=== PATIENT | female | born 1995 | race African-American/Black ===

== ENCOUNTER 2016-10-10 10:27 | Emergency (ER) | payer OTHER ==
[~2016-10-10] VITALS: Ht 162.6 cm; Wt 68.0 kg
[2016-10-10] MEDS ORDERED: [UNRECOGNIZED DRUG - REMARK] (10:46)
[2016-10-10 12:46] LABS: BASO % 0.1 % (0.0-1.0); EOS # 0.1 K/mm3 (0.0-0.50); EOS % 1.2 % (0.0-3.0); LARGE UNSTAINED CELL # 0.2 K/mm3 (0.0-0.4); LYMPH # 2.1 K/mm3 (1.5-6.5); LYMPH % 31.5 % (24.0-44.0); MEAN CORPUSCULAR HEMOGLOBIN 29.2 pg (27.0-33.0); MEAN CORPUSCULAR HGB CONC 32.1 g/dl (32.0-36.5); MEAN CORPUSCULAR VOLUME 91.2 fl (80.0-96.0); MONO # 0.4 K/mm3 (0.0-0.8); MONO % 6.1 % (0.0-5.0); NEUTROPHILS # 3.8 K/mm3 (1.8-7.7); NEUTROPHILS % 58.1 % (36.0-66.0); PLATELET COUNT, AUTOMATED 257 k/mm3 (150-450); WHITE BLOOD COUNT 6.5 K/mm3 (4.0-10.0)
[2016-10-10 13:31] VITALS: BP 132/80
--- NOTE | 2016-10-10 13:47 | REP ---
FIRST TRIMESTER ULTRASOUND: Real-time sonographic evaluation of the pelvis performed utilizing transabdominal and endovaginal technique. The uterus measures 9.6 x 4.2 x 6.0 cm. Endometrial thickness is 16 mm. There is no intrauterine gestational sac seen. Right ovary measures 3.6 x 2.7 x 2.2 cm and left ovary 2.6 x 1.5 x 2.4 cm. Complex cystic structure of the right ovary measures 2.5 x 1.9 x 1.6 cm. This could represent a corpus luteum. There is no evidence of ovarian torsion, with blood flow seen in each ovary with duplex Doppler evaluation. There is no adnexal mass or free fluid. IMPRESSION: No intrauterine gestational sac. Small complex cystic structure right ovary may represent a complex corpus luteum. No mass or free fluid. Findings may represent very early intrauterine , missed AB or ectopic . Suggest correlation with serial quantitative beta hCG values. There is no torsion. Signed by Solo Rasmussen MD 10/10/2016 05:02 P
== END 2016-10-10 14:04 | disposition home or self-care (01) ==
LOC: M ED 11:44
DX: Z33.1 Pregnant state, incidental (principal); R10.2 Pelvic and perineal pain; K21.9 Gastro-esophageal reflux disease without esophagitis

== ENCOUNTER 2016-10-12 12:04 | Emergency (ER) | payer OTHER ==
[~2016-10-12] VITALS: Ht 162.6 cm; Wt 68.0 kg
[2016-10-12 12:04] VITALS: BP 163/76
[~2016-10-12 12:04] MED LIST: [UNRECOGNIZED DRUG - REMARK]
== END 2016-10-12 13:11 | disposition home or self-care (01) ==
LOC: M ED 12:44
DX: O99.89 Other specified diseases and conditions complicating pregnancy, childbirth and the puerperium (principal); M54.5 Low back pain; Z3A.01 Less than 8 weeks gestation of pregnancy

== ENCOUNTER 2016-10-31 23:57 | Emergency (ER) | payer OTHER ==
[~2016-10-31] VITALS: Ht 162.6 cm; Wt 69.4 kg
[2016-11-01] MEDS ORDERED: PREN1CAP PO (00:12)
[2016-11-01 00:47] LABS: BASO % 0.3 % (0.0-1.0); EOS # 0.1 K/mm3 (0.0-0.50); EOS % 1.1 % (0.0-3.0); LARGE UNSTAINED CELL # 0.2 K/mm3 (0.0-0.4); LYMPH # 2.9 K/mm3 (1.5-6.5); LYMPH % 34.8 % (24.0-44.0); MEAN CORPUSCULAR HEMOGLOBIN 30.7 pg (27.0-33.0); MEAN CORPUSCULAR HGB CONC 33.8 g/dl (32.0-36.5); MEAN CORPUSCULAR VOLUME 90.8 fl (80.0-96.0); MONO # 0.4 K/mm3 (0.0-0.8); MONO % 4.6 % (0.0-5.0); NEUTROPHILS # 4.8 K/mm3 (1.8-7.7); NEUTROPHILS % 57.2 % (36.0-66.0); PLATELET COUNT, AUTOMATED 225 k/mm3 (150-450); RED CELL DISTRIBUTION WIDTH 11.9 % (11.5-14.5); WHITE BLOOD COUNT 8.3 K/mm3 (4.0-10.0)
[2016-11-01] MEDS ORDERED: ONDANSETRON 4MG/2ML VIAL (J2405) IV ONE (01:00)
[2016-11-01] MEDS ORDERED: NS 1,000 ML IV ONE (01:00)
[2016-11-01 01:06] LABS: ANION GAP 7 MEQ/L (8-16); BLOOD UREA NITROGEN 9 MG/DL (7-18); CARBON DIOXIDE LEVEL 27 MEQ/L (21-32); CHLORIDE LEVEL 104 MEQ/L (98-107); CREATININE FOR GFR 0.61 MG/DL (0.55-1.02); GLUCOSE, FASTING 89 MG/DL (70-105); POTASSIUM SERUM 3.5 MEQ/L (3.5-5.1); SODIUM LEVEL 138 MEQ/L (136-145)
[2016-11-01] MEDS ORDERED: ONDANSETRON 4 MG ORAL DISINTEGRATING TAB (S0181) PO ONE (02:00)
[2016-11-01] MEDS ORDERED: DICL10TA PO ×2 (02:08)
[2016-11-01 02:32] VITALS: BP 121/67
== END 2016-11-01 02:38 | disposition home or self-care (01) ==
LOC: M ED 11-01 01:05
DX: O21.0 Mild hyperemesis gravidarum (principal); Z3A.08 8 weeks gestation of pregnancy
CPT/HCPCS: 36415; 80048; 85025; 96361; 96374; 99283; J2405

== ENCOUNTER 2016-12-07 11:51 | Emergency (ER) | payer OTHER ==
[~2016-12-07] VITALS: Ht 162.6 cm; Wt 70.3 kg
[~2016-12-07 11:51] MED LIST changes: +DICL10TA PO; +PREN1CAP PO
[2016-12-07] MEDS ORDERED: PYRI25TA3 PO ×2 (11:59→16:58)
[2016-12-07] MEDS ORDERED: NS 1,000 ML IV SCH (13:22)
[2016-12-07] MEDS ORDERED: ONDANSETRON 4MG/2ML VIAL (J2405) IV ONE (13:30)
[2016-12-07] MEDS ORDERED: NS 1,000 ML IV ONE (13:30)
[2016-12-07 14:23] LABS: BASO % 0.1 % (0.0-1.0); EOS # 0.1 K/mm3 (0.0-0.50); EOS % 1.4 % (0.0-3.0); LARGE UNSTAINED CELL # 0.2 K/mm3 (0.0-0.4); LARGE UNSTAINED CELL % 1.6 % (0.0-4.0); LYMPH # 1.8 K/mm3 (1.5-6.5); LYMPH % 18.9 % (24.0-44.0); MEAN CORPUSCULAR HEMOGLOBIN 31.5 pg (27.0-33.0); MEAN CORPUSCULAR HGB CONC 33.7 g/dl (32.0-36.5); MEAN CORPUSCULAR VOLUME 93.4 fl (80.0-96.0); MONO # 0.5 K/mm3 (0.0-0.8); MONO % 5.4 % (0.0-5.0); NEUTROPHILS # 6.8 K/mm3 (1.8-7.7); NEUTROPHILS % 72.5 % (36.0-66.0); PLATELET COUNT, AUTOMATED 261 k/mm3 (150-450); RED CELL DISTRIBUTION WIDTH 12.5 % (11.5-14.5); WHITE BLOOD COUNT 9.3 K/mm3 (4.0-10.0)
[2016-12-07 14:55] LABS: ALBUMIN 3.4 GM/DL (3.2-5.2); ALBUMIN/GLOBULIN RATIO 0.71 (1.00-1.93); ALKALINE PHOSPHATASE 51 U/L (45-117); ALT/SGPT 38 U/L (12-78); ANION GAP 11 MEQ/L (8-16); AST/SGOT 28 U/L (15-37); BILIRUBIN,DIRECT 0.2 MG/DL (0.0-0.2); BILIRUBIN,TOTAL 0.9 MG/DL (0.2-1.0); BLOOD UREA NITROGEN 14 MG/DL (7-18); CALCIUM LEVEL 9.1 MG/DL (8.5-10.1); CARBON DIOXIDE LEVEL 26 MEQ/L (21-32); CHLORIDE LEVEL 100 MEQ/L (98-107); CREATININE FOR GFR 0.68 MG/DL (0.55-1.02); GLUCOSE, FASTING 76 MG/DL (70-105); POTASSIUM SERUM 3.6 MEQ/L (3.5-5.1); SODIUM LEVEL 137 MEQ/L (136-145); TOTAL PROTEIN 8.2 GM/DL (6.4-8.2)
[2016-12-07] MEDS ORDERED: MAALOX 30 ML SUSP *UDC PO ONE (16:45)
[2016-12-07] MEDS ORDERED: ZOFR4TAB3 PO (16:58)
[2016-12-07 17:22] VITALS: BP 126/69
== END 2016-12-07 17:27 | disposition home or self-care (01) ==
LOC: M ED 13:25
DX: O99.611 Diseases of the digestive system complicating pregnancy, first trimester (principal); K21.9 Gastro-esophageal reflux disease without esophagitis; O21.0 Mild hyperemesis gravidarum; Z3A.00 Weeks of gestation of pregnancy not specified
CPT/HCPCS: 80048; 80076; 83690; 85025; 96374; 99284; J2405

== ENCOUNTER 2017-04-04 13:10 | Outpatient (CLI) | payer OTHER ==
[~2017-04-04] VITALS: Ht 162.6 cm; Wt 94.0 kg
[~2017-04-04 13:10] MED LIST changes: +PYRI25TA3 PO; +ZOFR4TAB3 PO
[2017-04-04] MEDS ORDERED: BETAMETHASONE SOLUSPAN 6MG/ML INJ 5ML (J0702) IM ONE (13:30)
== END 2017-04-04 14:11 | disposition home or self-care (01) ==
LOC: M LDO 13:10
PROVIDERS: ATTEND Obstetrics & Gynecology
DX: O09.293 Supervision of pregnancy with other poor reproductive or obstetric history, third trimester (principal); Z3A.29 29 weeks gestation of pregnancy
CPT/HCPCS: 96372; J0702

== ENCOUNTER 2017-04-05 12:57 | Outpatient (CLI) | payer OTHER ==
[2017-04-05] MEDS ORDERED: BETAMETHASONE SOLUSPAN 6MG/ML INJ 5ML (J0702) IM ONE (13:15)
[2017-04-05 13:20] VITALS: BP 139/74
[2017-04-05 13:35] VITALS: BP 140/73
--- NOTE | 2017-04-28 11:46 | IPNPDOC ---
Progress Note Date of Service The patient was seen on 04/28/17 at 11:44. Progress Note [id number] presented to L&D for second betamethasone injections. She was seen the day prior and the provider ordered both beta methasone injections. She presented to L&D ambulatory with no concerns or changes in s/s. Injection ordered in computer based on hx and previous provider orders. Pt discharged without concerns. MADDIE RONDON CNM Apr 28, 2017 11:46
== END 2017-04-05 13:30 | disposition home or self-care (01) ==
LOC: M LDO 12:57
PROVIDERS: ATTEND Midwife
DX: O09.293 Supervision of pregnancy with other poor reproductive or obstetric history, third trimester (principal); Z3A.29 29 weeks gestation of pregnancy

== ENCOUNTER 2017-04-07 09:59 | Inpatient (IN) | payer OTHER ==
[2017-04-07] VITALS (20 sets, daily range): BP systolic 123–162; BP diastolic 72–94
[~2017-04-07] VITALS: Ht 163.8 cm; Wt 94.0 kg
[2017-04-07] MEDS ORDERED: FAMOTIDINE INJ 20MG/2ML VIAL (S0028) IVP ONE (11:00)
[2017-04-07] MEDS ORDERED: VITA50TA43 PO (11:38)
[2017-04-07] MEDS ORDERED: UNIS25TA2 PO (11:38)
--- NOTE | 2017-04-07 12:16 | ECGEPIP ---
Stationary ECG Study [facility] Test Date: 2017-04-07 Pat Name: TRISTIN PANDYA Department: Room: - Gender: F [employer]: : 1995 Requested By: SOLO Villanueva CNM Order Number: [id number] Reading MD: Pankaj Silva Measurements Intervals [place] Rate: 91 P: 49 UT: 150 QRS: 51 QRSD: 86 T: 40 QT: 362 QTc: 445 Interpretive Statements Normal sinus rhythm Incomplete right bundle branch block,otherwise normal EKG Comparison tracing not on file Electronically Signed On 04-07-2017 12:16:08 EDT by Pankaj Silva
[2017-04-07] MEDS ORDERED: FLUCONAZOLE 50MG TABLET PO STA (13:21)
[2017-04-07 13:58] LABS: ALT/SGPT 55 U/L (12-78); AST/SGOT 64 U/L (15-37); BILIRUBIN,TOTAL 0.4 MG/DL (0.2-1.0); CREATININE FOR GFR 0.41 MG/DL (0.55-1.02); URIC ACID 2.7 MG/DL (2.6-6.0)
[2017-04-07 14:08] LABS: MEAN CORPUSCULAR HEMOGLOBIN 26.6 pg (27.0-33.0); MEAN CORPUSCULAR HGB CONC 32.2 g/dl (32.0-36.5); MEAN CORPUSCULAR VOLUME 82.8 fl (80.0-96.0); WHITE BLOOD COUNT 14.4 K/mm3 (4.0-10.0)
[2017-04-07] MEDS ORDERED: MAG Sulf (L&D) 4 GM/100 ML 4 GM in APPROPRIATE DILUENT 1 EA IV ONE (14:30)
[2017-04-07] MEDS: MAG Sulf (OBGYN) 20GM/500ML 20,000 MG in APPROPRIATE DILUENT 1 EA IV SCH (14:51)
[2017-04-07] MEDS: LR 1,000 ML IV SCH ×2 (17:00→19:00)
--- NOTE | 2017-04-07 18:40 | REP ---
Obstetric sonography: Multiple gestation. Limited study. History: 30-week twin gestation unable to assess for biophysical profile and cervical length. Findings: A known diamniotic dichorionic twin gestation is seen. Placentas are anterior for fetus A and posterior for fetus B both grade 2. No evidence of previa or abruption. Twin A is vertex in lie along maternal left side. Twin B is oblique in position along maternal right. Amniotic fluid is subjectively normal with the deepest pocket of amniotic fluid measured around twin A being 3.3 cm and that around twin B 5.1 cm. In fetus A, normal cranium, left-sided stomach, abdominal wall cord insertion, three-vessel cord, kidneys and bladder are seen. In fetus B normal cranium, left-sided stomach, cord insertion, kidneys and bladder are seen as well. The biophysical profile score for fetus A is 8/8 and that for fetus B is 8/8. SD ratio in the umbilical cord artery by Doppler is normal for both fetuses 3.3 for fetus A and 3.0 for fetus B. heart rate for fetus A is 152 beats per minute and that for twin B 168 beats per minute. Closed cervical length is 1.7 cm. Signed by Bhavik Shaw MD 04/08/2017 08:00 A
[2017-04-07] MEDS ORDERED: ISOVUE-370 76% 100ML VIAL (Q9967) As Ordered ONE (19:55)
--- NOTE | 2017-04-07 20:34 | REP ---
Clinical: Chest pain and shortness of breath. Technique: Axial contrast enhanced images from the thoracic inlet to the upper abdomen using 100 ml Isovue 370 intravenous contrast material with multiplanar re-formations. Findings: Satisfactory enhancement of the pulmonary vasculature is achieved and no filling defects are identified to suggest pulmonary embolus. Lung romero demonstrate moderate bilateral perihilar, lower lobe and right middle lobe consolidations with small pleural effusions and passive atelectasis. No pneumothorax. Tracheobronchial tree is patent. No significant adenopathy. Further evaluation of the mediastinum demonstrates normal thoracic aorta and heart/pericardium. No pericardial effusion. Surrounding musculoskeletal structures are normal. Impression: No evidence for pulmonary embolus. Moderate bilateral infiltrates compatible with multi focal pneumonia with small pleural effusions and passive atelectasis. Signed by Alec Jeffers MD 04/07/2017 08:26 P
[2017-04-07 21:24] LABS: ADD MANUAL DIFFER YES; MEAN CORPUSCULAR HEMOGLOBIN 26.2 pg (27.0-33.0); MEAN CORPUSCULAR HGB CONC 31.7 g/dl (32.0-36.5); MEAN CORPUSCULAR VOLUME 82.8 fl (80.0-96.0); PLATELET COUNT, AUTOMATED 210 k/mm3 (150-450); RED CELL DISTRIBUTION WIDTH 15.1 % (11.5-14.5); WHITE BLOOD COUNT 12.6 K/mm3 (4.0-10.0)
[2017-04-07] MEDS ORDERED: IPRATROPIUM 0.5MG/ALBUTEROL 2.5MG INH SOL UD 3ML (DUONEB)(J7620) NEB ONE (21:30)
[2017-04-07] MEDS: PIPERACILLIN/TAZOBACTAM SOD 3.375 GM in D5W MINI-BAG PLUS 50 ML IV SCH (21:49)
[2017-04-07] MEDS ORDERED: IPRATROPIUM 0.5MG/ALBUTEROL 2.5MG INH SOL UD 3ML (DUONEB)(J7620) As Ordered ONE (21:54)
[2017-04-07 22:00] LABS: CORRECTED WHITE BLOOD COUNT 11.8 K/mm3; NUCLEATED RED BLOOD CELL 7 % (0-0)
[2017-04-07 22:01] LABS: ANISOCYTOSIS 1+; HYPOCHROMASIA 2+
[2017-04-07 22:02] LABS: POLYCHROMASIA 1+
[2017-04-08] VITALS (17 sets, daily range): BP systolic 124–161; BP diastolic 74–104
[2017-04-08] MEDS: MAG Sulf (OBGYN) 20GM/500ML 20,000 MG in APPROPRIATE DILUENT 1 EA IV SCH (00:13)
[2017-04-08 00:48] LABS: MEAN CORPUSCULAR HEMOGLOBIN 27.1 pg (27.0-33.0); MEAN CORPUSCULAR HGB CONC 32.7 g/dl (32.0-36.5); MEAN CORPUSCULAR VOLUME 83.1 fl (80.0-96.0); RED CELL DISTRIBUTION WIDTH 14.9 % (11.5-14.5); WHITE BLOOD COUNT 13.4 K/mm3 (4.0-10.0)
[2017-04-08 01:11] LABS: ANION GAP 11 MEQ/L (8-16); BLOOD UREA NITROGEN 3 MG/DL (7-18); CALCIUM LEVEL 7.7 MG/DL (8.5-10.1); CARBON DIOXIDE LEVEL 23 MEQ/L (21-32); CHLORIDE LEVEL 104 MEQ/L (98-107); CREATININE FOR GFR 0.45 MG/DL (0.55-1.02); GLUCOSE, FASTING 91 MG/DL (70-105); POTASSIUM SERUM 3.8 MEQ/L (3.5-5.1); SODIUM LEVEL 138 MEQ/L (136-145)
[2017-04-08] MEDS: PIPERACILLIN/TAZOBACTAM SOD 3.375 GM in D5W MINI-BAG PLUS 50 ML IV SCH ×3 (06:08→22:00)
[2017-04-08 06:54] LABS: MEAN CORPUSCULAR HEMOGLOBIN 26.5 pg (27.0-33.0); MEAN CORPUSCULAR HGB CONC 32.2 g/dl (32.0-36.5); MEAN CORPUSCULAR VOLUME 82.1 fl (80.0-96.0)
[2017-04-08 07:06] LABS: ANION GAP 13 MEQ/L (8-16); BLOOD UREA NITROGEN 3 MG/DL (7-18); CALCIUM LEVEL 7.7 MG/DL (8.5-10.1); CARBON DIOXIDE LEVEL 23 MEQ/L (21-32); CHLORIDE LEVEL 107 MEQ/L (98-107); CREATININE FOR GFR 0.43 MG/DL (0.55-1.02); GLUCOSE, FASTING 103 MG/DL (70-105); POTASSIUM SERUM 3.2 MEQ/L (3.5-5.1); SODIUM LEVEL 143 MEQ/L (136-145)
[2017-04-08] MEDS: LR 1,000 ML IV SCH (07:30)
[2017-04-08] MEDS: FAMOTIDINE 20 MG TAB PO SCH (21:26)
[2017-04-08] MEDS: CEPACOL LOZENGE MT PRN (21:27)
[2017-04-09] VITALS (13 sets, daily range): BP systolic 132–175; BP diastolic 64–107
[2017-04-09] MEDS: CEPACOL LOZENGE MT PRN ×2 (04:59→08:21)
[2017-04-09] MEDS: PIPERACILLIN/TAZOBACTAM SOD 3.375 GM in D5W MINI-BAG PLUS 50 ML IV SCH ×3 (06:00→22:22)
[2017-04-09 08:03] LABS: ADD MANUAL DIFFER YES; MEAN CORPUSCULAR HEMOGLOBIN 26.1 pg (27.0-33.0); MEAN CORPUSCULAR HGB CONC 31.7 g/dl (32.0-36.5); MEAN CORPUSCULAR VOLUME 82.2 fl (80.0-96.0); PLATELET COUNT, AUTOMATED 205 k/mm3 (150-450); RED CELL DISTRIBUTION WIDTH 15.2 % (11.5-14.5); WHITE BLOOD COUNT 6.2 K/mm3 (4.0-10.0)
[2017-04-09 08:30] LABS: ANISOCYTOSIS 1+; EOSINOPHILS 1 % (0-5); GIANT PLATELETS 1+; HYPOCHROMASIA 1+; NUCLEATED RED BLOOD CELL 2 % (0-0); POLYCHROMASIA 1+
[2017-04-09] MEDS: FAMOTIDINE 20 MG TAB PO SCH ×2 (08:31→20:58)
[2017-04-09] MEDS: LABETALOL 200 MG TAB PO SCH ×2 (10:32→20:58)
--- NOTE | 2017-04-09 17:07 | REP ---
Clinical: Follow up pneumonia. Technique: PA and lateral. Findings: Bibasilar infiltrates (right greater than left) and small pleural effusion appear improved when compared with CT dated 04/07/2017. No pneumothorax. Mediastinum and cardiac silhouette normal. Skeletal structures intact. Impression: Bibasilar infiltrates and small pleural effusion relatively improved compared to prior CT dated 04/07/2017. Signed by Alec Jeffers MD 04/09/2017 04:59 P
[2017-04-10] VITALS (13 sets, daily range): BP systolic 119–158; BP diastolic 65–98
[2017-04-10] MEDS: PIPERACILLIN/TAZOBACTAM SOD 3.375 GM in D5W MINI-BAG PLUS 50 ML IV SCH ×3 (06:00→21:57)
[2017-04-10 07:27] LABS: MEAN CORPUSCULAR HEMOGLOBIN 25.4 pg (27.0-33.0); MEAN CORPUSCULAR HGB CONC 30.3 g/dl (32.0-36.5); MEAN CORPUSCULAR VOLUME 83.9 fl (80.0-96.0); RED CELL DISTRIBUTION WIDTH 15.4 % (11.5-14.5)
[2017-04-10] MEDS: LABETALOL 200 MG TAB PO SCH ×2 (09:29→22:08)
[2017-04-10] MEDS: FAMOTIDINE 20 MG TAB PO SCH ×2 (09:30→21:57)
[2017-04-10] MEDS: CEPACOL LOZENGE MT PRN (09:37)
--- NOTE | 2017-04-10 11:12 | IPN ---
DATE: 04/10/2017 This lady is a 21-year-old 1 at 30 weeks +6 days, now 31 weeks with di-di twins, came in with bilobar pneumonia and has been overall stable. She still is using three pillows. It is difficult in getting an NST because keeping both babies on the monitor is difficult because they are so active. She did have a BPP 2 days ago which was 8/8 on both twins. She is now having a productive cough and bringing up sputum. Her oxygen saturations are still normal on room air at 97%. She still has random severe range blood pressures and has been started on labetalol 200 twice a day. She also has a collection 24-hour urine, which should be completed by today. Her chemistries have been normal. Her vital signs this morning: Her blood pressure is 122/70, respirations are 22, pulse 76, temperature is 98.0. Her respirations are normalizing out. She has as low as 16 and as high as 24. Since 2000 hours last night, she has had no severe range blood pressures and apparently labetalol seems to be working well. The rest the examination is unremarkable. She is having some entry, which we can now hear on both lobes bilaterally. She had a chest x-ray, which shows resolving pneumonia and overall the patient is getting better. She has been afebrile since and is mobilizing well using her incentive spirometry, has her sequentials on board and continues with her Zosyn antibiotics. The plan of management is when she gets significantly better, her shortness of breath is resolved and her pneumonia is resolved, our plan is to send her home on antibiotics to complete her 7-day course. In summary, we have a di-di twin at 31 weeks with significant bilobular pneumonia, resolving and improving at the present time.
[2017-04-11] VITALS (15 sets, daily range): BP systolic 114–167; BP diastolic 64–108
[2017-04-11] MEDS: PIPERACILLIN/TAZOBACTAM SOD 3.375 GM in D5W MINI-BAG PLUS 50 ML IV SCH ×3 (06:46→21:17)
[2017-04-11] MEDS ORDERED: ACETAMINOPHEN 500 MG TAB PO PRN (07:45)
[2017-04-11] MEDS: LABETALOL 200 MG TAB PO SCH ×2 (08:35→20:18)
[2017-04-11] MEDS: FAMOTIDINE 20 MG TAB PO SCH ×2 (08:35→20:15)
[2017-04-11] MEDS: PYRIDOXINE 50 MG TAB PO SCH ×2 (08:35→20:15)
[2017-04-11] MEDS ORDERED: DOCUSATE SODIUM 100 MG CAP PO PRN (10:15)
[2017-04-11] MEDS: FERROUS SULFATE 325MG TAB PO SCH (10:40)
[2017-04-11] MEDS: PRENATAL VITAMINS CHEWABLE TABLET PO SCH (10:40)
[2017-04-11] MEDS ORDERED: DOXYCYCLINE HYCLATE 100 MG TAB PO ONE (20:00)
[2017-04-11] MEDS ORDERED: diphenhydrAMINE 25 MG CAP PO ONE (20:15)
[2017-04-12] VITALS (12 sets, daily range): BP systolic 98–180; BP diastolic 58–120
[2017-04-12] MEDS ORDERED: NIFEdipine 10 MG CAP PO ONE (00:45)
[2017-04-12] MEDS: PIPERACILLIN/TAZOBACTAM SOD 3.375 GM in D5W MINI-BAG PLUS 50 ML IV SCH (06:29)
[2017-04-12] MEDS: PYRIDOXINE 50 MG TAB PO SCH ×2 (08:44→20:57)
[2017-04-12] MEDS: LABETALOL 200 MG TAB PO SCH ×2 (08:44→20:56)
[2017-04-12] MEDS: FERROUS SULFATE 325MG TAB PO SCH (08:44)
[2017-04-12] MEDS: PRENATAL VITAMINS CHEWABLE TABLET PO SCH (08:44)
[2017-04-12] MEDS: FAMOTIDINE 20 MG TAB PO SCH ×2 (08:45→20:57)
--- NOTE | 2017-04-12 11:03 | REP ---
Clinical: Pre-eclampsia -- Twin gestation. Comparison: 04/07/2017 . Findings: Examination demonstrates known advanced diamniotic dichorionic twin gestation with placenta identified anteriorly and grade II - III for twin A and posterior fundally and grade II - III for twin B without evidence for placenta previa or abruption. Cervix measures 2.5 cm in length and appears closed. Gestational age by LMP is 31 weeks 2 days . TWIN A: Twin A identified in cephalic presentation along the maternal left side. motion is appreciated. Amniotic fluid volume is normal and the deepest pocket measures 4.7 cm. Gestational age by current measurements 29 weeks 2 days. FHR equals 130 beats per minute. Estimated weight 1381 grams ( 5th percentile). ------- TWIN B: Twin B identified in transverse (head to maternal left) presentation along the maternal right side. motion is appreciated. Amniotic fluid volume is normal and the deepest pocket measures 4.2 cm. Gestational age by current measurements 30 weeks 1 day. FHR equals 139 beats per minute. Estimated weight 1702 grams ( 39th percentile). Impression: Advanced diamniotic dichorionic twin gestation. Mild discordant growth as noted above may warrant continued follow-up. Signed by Alec Jeffers MD 04/12/2017 10:54 A
[2017-04-12 11:30] LABS: ALBUMIN 1.9 GM/DL (3.2-5.2); ALBUMIN/GLOBULIN RATIO 0.58 (1.00-1.93); ALKALINE PHOSPHATASE 117 U/L (45-117); ALT/SGPT 27 U/L (12-78); ANION GAP 9 MEQ/L (8-16); AST/SGOT 17 U/L (15-37); BILIRUBIN,TOTAL 0.3 MG/DL (0.2-1.0); BLOOD UREA NITROGEN 8 MG/DL (7-18); CALCIUM LEVEL 8.3 MG/DL (8.5-10.1); CARBON DIOXIDE LEVEL 25 MEQ/L (21-32); CHLORIDE LEVEL 108 MEQ/L (98-107); GLUCOSE, FASTING 161 MG/DL (70-105); POTASSIUM SERUM 3.7 MEQ/L (3.5-5.1); SODIUM LEVEL 142 MEQ/L (136-145); TOTAL PROTEIN 5.2 GM/DL (6.4-8.2)
[2017-04-12 11:39] LABS: MEAN CORPUSCULAR HEMOGLOBIN 25.8 pg (27.0-33.0); MEAN CORPUSCULAR HGB CONC 31.4 g/dl (32.0-36.5); MEAN CORPUSCULAR VOLUME 82.2 fl (80.0-96.0); RED CELL DISTRIBUTION WIDTH 15.5 % (11.5-14.5)
[2017-04-13] VITALS (7 sets, daily range): BP systolic 123–142; BP diastolic 59–88
[2017-04-13] MEDS: FERROUS SULFATE 325MG TAB PO SCH (09:03)
[2017-04-13] MEDS: PYRIDOXINE 50 MG TAB PO SCH ×2 (09:03→20:56)
[2017-04-13] MEDS: LABETALOL 200 MG TAB PO SCH ×2 (09:03→20:57)
[2017-04-13] MEDS: PRENATAL VITAMINS CHEWABLE TABLET PO SCH (09:04)
[2017-04-13] MEDS: FAMOTIDINE 20 MG TAB PO SCH ×2 (12:24→20:56)
[2017-04-14] VITALS (7 sets, daily range): BP systolic 114–156; BP diastolic 54–90
[2017-04-14] MEDS: FAMOTIDINE 20 MG TAB PO SCH ×2 (09:59→21:07)
[2017-04-14] MEDS: PYRIDOXINE 50 MG TAB PO SCH ×2 (09:59→21:06)
[2017-04-14] MEDS: PRENATAL VITAMINS CHEWABLE TABLET PO SCH (09:59)
[2017-04-14] MEDS: FERROUS SULFATE 325MG TAB PO SCH (09:59)
[2017-04-14] MEDS: LABETALOL 200 MG TAB PO SCH ×2 (10:00→21:06)
[2017-04-15 02:30] VITALS: BP 120/71
[2017-04-15 06:07] VITALS: BP 119/70
[2017-04-15] MEDS: PRENATAL VITAMINS CHEWABLE TABLET PO SCH ×2 (09:00→10:04)
[2017-04-15] MEDS: PYRIDOXINE 50 MG TAB PO SCH ×2 (10:04→21:25)
[2017-04-15] MEDS: FERROUS SULFATE 325MG TAB PO SCH (10:04)
[2017-04-15] MEDS: LABETALOL 200 MG TAB PO SCH ×2 (10:04→21:28)
[2017-04-15] MEDS: FAMOTIDINE 20 MG TAB PO SCH ×2 (10:04→21:26)
[2017-04-15 10:06] VITALS: BP 122/59
[2017-04-15 14:00] VITALS: BP 145/77
[2017-04-15 18:04] VITALS: BP_SYST 124; BP_SYST 138; BP_DIAS 78; BP_DIAS 82
--- NOTE | 2017-04-15 20:20 | REPUSA ---
CLINICAL HISTORY: evaluation. TECHNIQUE: Realtime sonographic images were obtained in multiple projections. COMMENTS: There is a diamniotic, dichorionic twin gestation. The placenta is anterior and grade-3 for twin A, fundal and grade-3 for twin B. There is no evidence of placenta previa or abruption. Twin A: Living intrauterine fetus in vertex presentation on the maternal left. Normal amniotic flui d. BPP score is 8/8. The deepest pocket of amniotic fluid measures 3.7 cm. The S/D ratio of the co rd is slightly low at 2.24. Nuchal cord was not seen. heart rate 143 bpm. Twin B: Living intrauterine fetus in vertex presentation on the maternal right. Normal amniotic flu id. BPP score is 8/8. The deepest pocket of amniotic fluid measures 2.4 cm. The S/D ratio of the c ord is normal at 2.87. Nuchal cord was not seen. heart rate 137 bpm. There appears to be a separate anechoic pocked of fluid between the amnions for Twin A and B. This p ocked does not have any debris within it and no parts seen within it. IMPRESSION: 1. There is a live diamniotic, dichorionic twin gestation. 2. BPP score is 8/8 for both twins. 3. The S/D ratio of the cord of baby A is slightly low at 2.24.
[2017-04-15 22:00] VITALS: BP 135/61
[2017-04-16 02:30] VITALS: BP 144/95
[2017-04-16 06:06] VITALS: BP 135/84
[2017-04-16] MEDS: FERROUS SULFATE 325MG TAB PO SCH (08:11)
[2017-04-16] MEDS: PYRIDOXINE 50 MG TAB PO SCH ×2 (08:11→21:54)
[2017-04-16] MEDS: PRENATAL VITAMINS CHEWABLE TABLET PO SCH (08:11)
[2017-04-16] MEDS: FAMOTIDINE 20 MG TAB PO SCH ×2 (08:12→21:55)
[2017-04-16] MEDS: LABETALOL 200 MG TAB PO SCH ×2 (08:12→21:54)
[2017-04-16 10:00] VITALS: BP 130/61
[2017-04-16 14:00] VITALS: BP 129/74
[2017-04-16 18:00] VITALS: BP 139/84
[2017-04-16 21:50] VITALS: BP 132/84
[2017-04-17 02:00] VITALS: BP 130/78
[2017-04-17 06:18] VITALS: BP 139/91
--- NOTE | 2017-04-17 07:03 | IPNPDOC ---
Text Note Date of Service The patient was seen on 04/17/17. NOTE HD#11 21yo G1 at 32+0 wks EGA with di/di twin gestation admitted originally with pneumonia but also has Pre-E with severe features. Pt still reports some dyspnea and orthopnea but is improving every day. Slight cough. Pt denies HAs/ vision changes/RUQ pain. Denies LOF/VB/ctxs. +FMx2. No other complaints at this time. No issues with elevated BPs for ~24 hrs. Completed Growth scan on 04/12/17 - no discordant growth. Zosyn stopped as completed 6days of treatment/no growth. complicated by: 1) Di-Di twin gestation 2) Elevated 1hr GCT/no 3hr GTT completed 3) Short cervix at 1.7cm 4) Pre-E with severe features (BP). 5) Pneumonia, mostly resolved. O: VS - normal -mild range BPs. AF. Normal RR. Gen: A&Ox3, NAD. Resp: Slightly decreased breath sounds in lower lung romero. Clear o/w. CV: RRR ABD: Soft/Gravid/NT. Ext: 2+ BLE, BUE BPP 8/8 x2 2 days ago, NST done yesterday even though not needed (BPP 2 days ago ), some irreg ctx's that she did not feel Labs: See [facility]. Last labs 10SEP, weekly labs due on this SUN, 17SEP A/P: 21yo G1 at 32+0 wks EGA with complicated by below. 1) Di-Di twin gestation: No new issues. No NST needed for 1 week due to BPP 2 days ago, spoke with nurse caring for her, no NST today. Growth scan 04/12/17. US shows CL 1.7cm previously. 2) Pneumonia: treated for 6days with zosyn. Will cont to clinically monitor. 3) Pre-Term/Short cervix. Received steroid dose/completed [id number]. 4) Anemia: on PNV, Ferrous sulfate, colace. 5) Pre-E with severe features (BP): on Labetalol 200mg BID. No further anti- hypertensives needed. Will try to maintain until 34wks. Sessions Enio MORROW, I+O Enio SAGASTUME, I+O Vital Signs Date Time Temp Pulse Resp B/P (MAP) Pulse Ox O2 Delivery O2 Flow Rate FiO2 04/17/17 06:18 97.7 83 20 139/91 (107) 95 Room Air SESSIONS,ANTOINE León MD Apr 17, 2017 07:03
[2017-04-17] MEDS: LABETALOL 200 MG TAB PO SCH ×2 (09:14→21:41)
[2017-04-17 09:30] VITALS: BP 134/87
[2017-04-17] MEDS: PRENATAL VITAMINS CHEWABLE TABLET PO SCH (09:34)
[2017-04-17] MEDS: FAMOTIDINE 20 MG TAB PO SCH ×2 (09:34→21:42)
[2017-04-17] MEDS: FERROUS SULFATE 325MG TAB PO SCH (09:34)
[2017-04-17] MEDS: PYRIDOXINE 50 MG TAB PO SCH ×2 (09:34→21:41)
[2017-04-17 18:00] VITALS: BP 133/81
[2017-04-17 21:30] VITALS: BP 148/72
[2017-04-18 02:45] VITALS: BP 140/74
[2017-04-18 06:27] VITALS: BP 138/96
[2017-04-18] MEDS: PRENATAL VITAMINS CHEWABLE TABLET PO SCH (08:56)
[2017-04-18] MEDS: FERROUS SULFATE 325MG TAB PO SCH (08:56)
[2017-04-18] MEDS: PYRIDOXINE 50 MG TAB PO SCH ×2 (08:57→21:26)
[2017-04-18] MEDS: FAMOTIDINE 20 MG TAB PO SCH ×2 (08:57→21:25)
[2017-04-18] MEDS: LABETALOL 200 MG TAB PO SCH ×2 (08:58→21:26)
[2017-04-18 09:01] VITALS: BP 129/62
--- NOTE | 2017-04-18 09:24 | IPN ---
DATE OF SERVICE: 04/18/2017 This girl is a 21-year-old, 1, at 32 weeks 1 day, with dichorionic-diamniotic (di-di) twin gestation admitted originally with pneumonia. Also, has some preeclampsia with some severe features. She still complains of some orthopnea and dyspnea. It is improving daily. I believe this is related to positional effect due to di-di twins. She has no visual changes. No right upper quadrant pain. No loss of fluid. No contraction. Good movement. Has NSTs on a regular basis. She had elevated blood pressures and was started on labetalol and has had symptomatic relief with normalizing blood pressures. She had a growth scan on 04/12/2017. The antibiotics that she was started on was discontinued. Her issues were that she has di-di twins, elevated 1-hour glucose. She had a 3-hour glucose tolerance test (GTT). Apparently, had a shortened cervix, but it is presently 2.1 cm and pneumonia, which is resolved. She has had many NSTs, which have been within normal limits. Today, her blood pressure is 138/96, pulse is 81, respirations are 17, temperature is 98.1. Her last laboratory reviews were on the 04/12/2017, where her hemoglobin was 7.7, hematocrit 24.7, and platelets were 214. Her last imaging, which was on 04/15/2017, showed a biophysical profile (BPP) 8/8. ST ratio was low at 2.24. heart rates were within normal limits, and amniotic fluid was within normal limits. The plan of management is to maintain her until 34 weeks in the present regime when she will be discharged. Presently, we have reviewed with her many questions, including the method of delivery, whether it is going to be vaginal or by section, options of vaginal delivery, and implementation of same. All these questions will be resolved at the time of delivery, and we counseled her to wait until the actual delivery time to explore the options for delivery. In summary, we have a 21-year-old with di-di twins who was progressing well and has resolved most of her issues related to her pneumonia and her elevated blood pressure.
[2017-04-18 14:00] VITALS: BP 123/67
[2017-04-18 18:16] VITALS: BP 131/88
[2017-04-18 21:23] VITALS: BP 126/81
[2017-04-19 02:18] VITALS: BP 132/65
[2017-04-19 06:01] VITALS: BP 124/63
[2017-04-19] MEDS: PRENATAL VITAMINS CHEWABLE TABLET PO SCH (09:36)
[2017-04-19] MEDS: PYRIDOXINE 50 MG TAB PO SCH ×2 (09:37→21:03)
[2017-04-19] MEDS: LABETALOL 200 MG TAB PO SCH ×2 (09:40→21:03)
[2017-04-19] MEDS: FERROUS SULFATE 325MG TAB PO SCH (09:41)
[2017-04-19] MEDS: FAMOTIDINE 20 MG TAB PO SCH ×2 (09:42→21:03)
[2017-04-19 14:00] VITALS: BP 130/69
[2017-04-19 17:48] VITALS: BP 123/86
[2017-04-19 21:01] VITALS: BP 134/80
[2017-04-20 02:21] VITALS: BP 125/70
[2017-04-20 06:25] VITALS: BP 132/59
[2017-04-20 08:30] VITALS: BP 134/64
[2017-04-20] MEDS: PRENATAL VITAMINS CHEWABLE TABLET PO SCH (08:38)
[2017-04-20] MEDS: FERROUS SULFATE 325MG TAB PO SCH (08:38)
[2017-04-20] MEDS: FAMOTIDINE 20 MG TAB PO SCH ×2 (08:40→21:00)
[2017-04-20] MEDS: LABETALOL 200 MG TAB PO SCH ×2 (08:40→21:00)
[2017-04-20] MEDS: PYRIDOXINE 50 MG TAB PO SCH ×2 (08:40→21:00)
[2017-04-20 10:00] VITALS: BP 120/69
[2017-04-20 14:00] VITALS: BP 136/75
[2017-04-20 17:54] VITALS: BP 133/63
[2017-04-21 02:02] VITALS: BP 127/75
[2017-04-21 05:46] VITALS: BP 125/66
--- NOTE | 2017-04-21 08:02 | IPNPDOC ---
Text Note Date of Service The patient was seen on 04/21/17. NOTE Antepartum Note HD#15 21yo G1 at 32+4 wks EGA with di/di twin gestation admitted with pneumonia, this now resolved. Denies dyspnea and orthopnea. Reports her cough completely gone. Pt denies HAs/vision changes/RUQ pain. Denies LOF/VB/ctxs. + FMx2. No other complaints at this time. No issues with elevated BPs. Completed Growth scan on 04/12/17 - no discordant growth. complicated by: 1) Di-Di twin gestation 2) Elevated 1hr GCT/no 3hr GTT completed 3) Short cervix at 1.7cm 4) Pre-E with severe features (BP). 5) Pneumonia. O: VS - normal -mild range BPs. AF. Normal RR. Gen: A&Ox3, NAD. Sitting up propped on pillows. Resp: CTAB CV: RRR ABD: Soft/Gravid/NT. Ext: 2+ BLE DP/PT, Neg homans BLE. BPP /8 x2 on 04/15/17, will resume NST's tomorrow, 20SEP Labs: See [facility]. A/P: 21yo G1 at 32+1wks EGA with complicated by below. Doing well. 1) Di-Di twin gestation: No new issues. NST's to resume daily tomorrow. Growth scan 04/12/17. US shows CL 1.7cm previously. 2) Pneumonia: treated for 6days with zosyn, resolved. 3) Pre-Term/Short cervix. Received steroid dose/completed [id number]. 4) Anemia: ordered PNV, Ferrous sulfate, colace. 5) Pre-E with severe features (BP): on Labetalol 200mg BID. No further anti- hypertensives needed. Will try to maintain until 34wks. 6) Repeat Pre-E labs today. Sessions Enio MORROW, I+O Enio SAGASTUME I+O Vital Signs Date Time Temp Pulse Resp B/P (MAP) Pulse Ox O2 Delivery O2 Flow Rate FiO2 04/21/17 05:46 97.4 72 16 125/66 (85) 04/20/17 17:54 99 Room Air SESSIONS,ANTOINE León MD Apr 21, 2017 08:02
[2017-04-21 08:39] LABS: MEAN CORPUSCULAR HEMOGLOBIN 25.3 pg (27.0-33.0); MEAN CORPUSCULAR HGB CONC 30.2 g/dl (32.0-36.5); MEAN CORPUSCULAR VOLUME 83.9 fl (80.0-96.0); RED CELL DISTRIBUTION WIDTH 18.4 % (11.5-14.5); WHITE BLOOD COUNT 7.5 K/mm3 (4.0-10.0)
[2017-04-21 09:13] LABS: ALT/SGPT 17 U/L (12-78); AST/SGOT 14 U/L (15-37); BILIRUBIN,TOTAL 0.4 MG/DL (0.2-1.0); CREATININE FOR GFR 0.54 MG/DL (0.55-1.02); URIC ACID 4.3 MG/DL (2.6-6.0)
[2017-04-21] MEDS: PYRIDOXINE 50 MG TAB PO SCH ×2 (09:21→21:38)
[2017-04-21] MEDS: PRENATAL VITAMINS CHEWABLE TABLET PO SCH (09:21)
[2017-04-21] MEDS: FAMOTIDINE 20 MG TAB PO SCH ×2 (09:21→21:37)
[2017-04-21] MEDS: LABETALOL 200 MG TAB PO SCH ×2 (09:22→21:38)
[2017-04-21] MEDS: FERROUS SULFATE 325MG TAB PO SCH (09:23)
[2017-04-21 10:20] VITALS: BP 123/55
[2017-04-21 14:11] VITALS: BP 116/65
[2017-04-21 18:14] VITALS: BP 115/65
[2017-04-21 21:30] VITALS: BP 128/64
[2017-04-22 02:00] VITALS: BP 118/67
[2017-04-22 06:20] VITALS: BP 129/76
[2017-04-22] MEDS: FERROUS SULFATE 325MG TAB PO SCH (08:39)
[2017-04-22] MEDS: PYRIDOXINE 50 MG TAB PO SCH ×2 (08:39→21:12)
[2017-04-22] MEDS: PRENATAL VITAMINS CHEWABLE TABLET PO SCH (08:39)
[2017-04-22] MEDS: FAMOTIDINE 20 MG TAB PO SCH ×2 (08:39→21:12)
[2017-04-22] MEDS: LABETALOL 200 MG TAB PO SCH ×2 (08:40→21:13)
[2017-04-22 10:00] VITALS: BP 112/60
[2017-04-22 14:00] VITALS: BP 137/56
[2017-04-22 18:00] VITALS: BP 136/79
[2017-04-22 21:21] VITALS: BP 132/60
[2017-04-23] VITALS (7 sets, daily range): BP systolic 116–145; BP diastolic 60–84
[2017-04-23] MEDS: PYRIDOXINE 50 MG TAB PO SCH ×2 (08:23→21:51)
[2017-04-23] MEDS: FERROUS SULFATE 325MG TAB PO SCH (08:23)
[2017-04-23] MEDS: FAMOTIDINE 20 MG TAB PO SCH ×2 (08:25→21:51)
[2017-04-23] MEDS: LABETALOL 200 MG TAB PO SCH ×2 (08:25→21:52)
[2017-04-23] MEDS: PRENATAL VITAMINS CHEWABLE TABLET PO SCH (09:00)
--- NOTE | 2017-04-23 10:16 | IPNPDOC ---
Text Note Date of Service The patient was seen on 04/23/17. NOTE HD# 17 Antepartum Note 21yo G1 at 32+6 wks EGA with di/di twin gestation admitted with pneumonia, this now resolved. Denies dyspnea and orthopnea. Pt denies HAs/ vision changes/RUQ pain. Denies LOF/VB/ctxs. +FMx2. No other complaints at this time. No issues with elevated BPs in the last week. Completed Growth scan on 05/19 - slight discordant growth-see attached below complicated by: 1) Di-Di twin gestation 2) Elevated 1hr GCT/no 3hr GTT completed 3) Short cervix at 1.7cm 4) Pre-E with severe features (BP's) 5) Pneumonia-resolved. O: VS - normal -mild range BPs. AF. Normal RR. Gen: A&Ox3, NAD Resp: CTAB CV: RRR ABD: Soft/Gravid/NT Ext: 2+ BLE UE/LE BPP 8/8 x2 on 04/15/17, NST's resumed yesterday-Cat 1 X2 Labs: See [facility], last done 19SEP US done 10SEP Comparison: 04/07/2017 . Findings: Examination demonstrates known advanced diamniotic dichorionic twin gestation with placenta identified anteriorly and grade II - III for twin A and posterior fundally and grade II - III for twin B without evidence for placenta previa or abruption. Cervix measures 2.5 cm in length and appears closed. Gestational age by LMP is 31 weeks 2 days . TWIN A: Twin A identified in cephalic presentation along the maternal left side. motion is appreciated. Amniotic fluid volume is normal and the deepest pocket measures 4.7 cm. Gestational age by current measurements 29 weeks 2 days. FHR equals 130 beats per minute. Estimated weight 1381 grams ( 5th percentile). ------- TWIN B: Twin B identified in transverse (head to maternal left) presentation along the maternal right side. motion is appreciated. Amniotic fluid volume is normal and the deepest pocket measures 4.2 cm. Gestational age by current measurements 30 weeks 1 day. FHR equals 139 beats per minute. Estimated weight 1702 grams ( 39th percentile). Impression: Advanced diamniotic dichorionic twin gestation. Mild discordant growth as noted above may warrant continued follow-up. Signed by Alec Jeffers MD 04/12/2017 10:54 A A/P: 21yo G1 at 32+6 wks EGA with complicated by below. Doing well. 1) Di-Di twin gestation: No new issues. NST's to cont daily. Growth scan with mild discordance. US shows CL 1.7cm previously. Rpt grth scan on 24SEP 2 weeks from last scan 2) Pneumonia: treated for 6days with zosyn, resolved. 3) Pre-Term/Short cervix. Received steroid dose/completed [id number]. 4) Anemia: ordered PNV, Ferrous sulfate, colace. 5) Pre-E with severe features (BP): on Labetalol 200mg BID. No further anti- hypertensives needed. Will try to maintain until 34wks, 29SEP. Sessions VS,Enio, I+O VSEnio I+O Vital Signs Date Time Temp Pulse Resp B/P (MAP) Pulse Ox O2 Delivery O2 Flow Rate FiO2 04/23/17 10:00 96.6 91 16 129/64 (85) 98 Room Air SESSIONS,ANTOINE León MD Apr 23, 2017 10:16
[2017-04-24] VITALS (7 sets, daily range): BP systolic 126–151; BP diastolic 65–86
[2017-04-24] MEDS: LABETALOL 200 MG TAB PO SCH ×2 (09:40→21:27)
[2017-04-24] MEDS: FERROUS SULFATE 325MG TAB PO SCH (09:40)
[2017-04-24] MEDS: PYRIDOXINE 50 MG TAB PO SCH ×2 (09:41→21:28)
[2017-04-24] MEDS: FAMOTIDINE 20 MG TAB PO SCH ×2 (09:41→21:28)
[2017-04-24] MEDS: PRENATAL VITAMINS CHEWABLE TABLET PO SCH (09:41)
[2017-04-25 02:00] VITALS: BP 121/78
[2017-04-25 06:00] VITALS: BP 131/84
[2017-04-25] MEDS: PRENATAL VITAMINS CHEWABLE TABLET PO SCH (09:00)
[2017-04-25] MEDS: PYRIDOXINE 50 MG TAB PO SCH ×2 (09:57→20:55)
[2017-04-25] MEDS: LABETALOL 200 MG TAB PO SCH ×2 (09:57→20:55)
[2017-04-25] MEDS: FAMOTIDINE 20 MG TAB PO SCH ×2 (09:57→20:55)
[2017-04-25] MEDS: FERROUS SULFATE 325MG TAB PO SCH (09:57)
[2017-04-25 10:00] VITALS: BP 144/71
[2017-04-25 17:59] VITALS: BP 135/73
[2017-04-25 21:00] VITALS: BP 136/61
[2017-04-25 22:10] VITALS: BP 138/73
[2017-04-26 02:30] VITALS: BP 140/85
[2017-04-26 06:30] VITALS: BP 130/70
[2017-04-26] MEDS: PRENATAL VITAMINS CHEWABLE TABLET PO SCH (09:45)
[2017-04-26] MEDS: LABETALOL 200 MG TAB PO SCH ×2 (09:45→21:00)
[2017-04-26] MEDS: PYRIDOXINE 50 MG TAB PO SCH ×2 (09:46→21:00)
[2017-04-26] MEDS: FERROUS SULFATE 325MG TAB PO SCH (09:46)
[2017-04-26] MEDS: FAMOTIDINE 20 MG TAB PO SCH ×2 (09:46→21:00)
[2017-04-26 10:31] VITALS: BP 125/64
--- NOTE | 2017-04-26 13:22 | REP ---
TWIN OB ULTRASOUND: Real-time sonographic evaluation of the gravid uterus is performed. There is a diamniotic dichorionic twin gestation. Estimated gestational age 33 weeks 2 days, EDC 06/12/2017. Fetus A placenta is anterior and grade 3 and fetus B placenta is posterior and grade 3, with no previa or abruption. There is concordant growth. FETUS A: BPD 77 mm = 30 weeks 6 days, 14th percentile HC 284 mm = 31 weeks 1 day, 19th percentile AC 273 mm = 31 weeks 2 days, 21st percentile FL 62 mm = 32 weeks 0 days, 31st percentile HC/AC ratio 1.04. Estimated weight is 1780 grams, 12th percentile. heart rate 141 beats per minute. Amniotic fluid appears within normal limits with deepest pocket of fluid around fetus A, 3.4 cm. S/D ratio 3.07. RI 0.67. position vertex on the maternal left side. FETUS B: BPD 75 mm = 30 weeks 0 days, less than 5th percentile HC 277 mm = 30 weeks 2 days, less than 5th percentile AC 287 mm = 32 weeks 5 days, 41st percentile FL 63 mm = 32 weeks 5 days, 41st percentile HC/AC ratio 0.97. Estimated weight 1923 grams, 24th percentile. heart rate 131 beats per minute. Amniotic fluid within normal limits with deepest pocket of fluid around fetus B 5.1 cm. S/D ratio 2.78. RI 0.64. position vertex on the maternal right side. Signed by Solo Rasmussen MD 04/26/2017 07:15 P
[2017-04-26 14:15] VITALS: BP 116/56
[2017-04-26 17:57] VITALS: BP 135/84
[2017-04-26 22:10] VITALS: BP 139/85
[2017-04-27 02:05] VITALS: BP 129/77
[2017-04-27 06:01] VITALS: BP 142/92
[2017-04-27] MEDS: FERROUS SULFATE 325MG TAB PO SCH (08:49)
[2017-04-27] MEDS: PYRIDOXINE 50 MG TAB PO SCH ×2 (08:49→21:00)
[2017-04-27] MEDS: FAMOTIDINE 20 MG TAB PO SCH ×2 (08:49→21:00)
[2017-04-27] MEDS: LABETALOL 200 MG TAB PO SCH ×2 (08:56→21:00)
[2017-04-27] MEDS: PRENATAL VITAMINS CHEWABLE TABLET PO SCH (08:58)
[2017-04-27 09:05] LABS: ALT/SGPT 19 U/L (12-78); AST/SGOT 32 U/L (15-37); BILIRUBIN,TOTAL 0.3 MG/DL (0.2-1.0); CREATININE FOR GFR 0.51 MG/DL (0.55-1.02); URIC ACID 5.3 MG/DL (2.6-6.0)
--- NOTE | 2017-04-27 09:30 | IPN ---
DATE: 04/27/2017 This lady is a 21-year-old 1 at 33 and 3 weeks of gestation with Ann twins admitted with pneumonia originally. She denies any dyspnea or orthopnea. She does not have a cough at the present time. She has not had any visual disturbances. No right upper quadrant pain. No loss of fluid or vaginal bleeding or contractions. She has been monitored with NST. She has no other complaints. No issues of elevated blood pressure. Growth scans are ordered on a regular basis and NST is ordered on a regular basis. She does not have any antibiotics at the present time. Her is complicated by Ann twin gestation. She had an elevated 1-hour glucose. Her 3-hour GTT was completed. Her cervix according to the ultrasound is 2.5, although it is recorded somewhere else at 1.7. She had some preeclampsia issues and pneumonia. On examination today she is normocephalic, atraumatic. Neck full range of motion. Pupils equal and reactive to light. Distal pulses are symmetric. No evidence of deep vein thrombosis (DVT), pulmonary embolism (PE) or superficial phlebitis. Chest is clear bilaterally to the bases. No wheezes or rhonchi. No CVA tenderness. Uterus is appropriate symphysis fundus height. Four quadrant bowel sounds are noted. No rashes, lesions or pruritus. No arthralgia, myalgia. No complaint of cough, wheeze, or shortness of breath or dyspnea on exertion. No chest pain, not bleeding. Neuro complete. No incontinence. No nausea, vomiting, diarrhea or constipation. At the present time, her most recent blood pressure is 142/92, respirations are 20, pulse is 83 and temperature 99.1. She has intermittent labile blood pressures but nothing at critical value. Her latest labs were April 21 where her hemoglobin was 8.0, hematocrit 26.6 and platelets were 187. Our plan is to reorder a CBC today. She had an ultrasound and a biophysical profile (BPP) on 04/26/2017. Again, Ann twins, estimated 33 and 2, EDC is 06/12/2017, anterior placenta grade 3 of twin A and posterior placenta grade 3 on twin B. Fetus A at approximately at the 14th percentile for a BPD at 30 weeks and 6 days, estimated weight is 1780 grams. This is the 12th percentile. heart is 141. SONAM is normal. ST ratio and RI index are normal. Vertex is twin A. Twin B is 30 weeks 0 days, less than the 5th percentile for BPD. Head abdomen ratio was 0.97, estimated weight is 1923 grams or the 24th percentile. heart is 131. SONAM is normal. S/D ratio and RI index are normal and this baby is also vertex. The plan of management to date was to maintain her to 34 weeks and then deliver. We will reorder her CBC and preeclamptic profile and continue monitoring until 34 weeks when the decision of delivery and route of delivery will be entertained.
[2017-04-27 10:00] VITALS: BP 135/63
[2017-04-27 14:00] VITALS: BP 133/84
[2017-04-27] MEDS ORDERED: ADACEL/BOOSTRIX VACCINE (DIPHTH/PERTUSS/ACELL/TETANUS)0.5ML SYR (90715) IM ONE (16:00)
[2017-04-27 17:34] VITALS: BP 139/85
[2017-04-27 22:00] VITALS: BP 119/74
[2017-04-28] VITALS (7 sets, daily range): BP systolic 120–134; BP diastolic 65–89
[2017-04-28 07:01] LABS: MEAN CORPUSCULAR HEMOGLOBIN 25.4 pg (27.0-33.0); MEAN CORPUSCULAR HGB CONC 30.4 g/dl (32.0-36.5); MEAN CORPUSCULAR VOLUME 83.4 fl (80.0-96.0); RED CELL DISTRIBUTION WIDTH 19.1 % (11.5-14.5); WHITE BLOOD COUNT 7.5 10^3/uL (4.0-10.0)
[2017-04-28] MEDS ORDERED: INFLUENZA QUADRIVALENT PF VACCINE 0.5ML SYRINGE (90686) IM ONE (09:00)
[2017-04-28] MEDS: PYRIDOXINE 50 MG TAB PO SCH ×2 (09:08→20:45)
[2017-04-28] MEDS: LABETALOL 200 MG TAB PO SCH ×2 (09:08→20:45)
[2017-04-28] MEDS: FAMOTIDINE 20 MG TAB PO SCH ×2 (09:08→20:45)
[2017-04-28] MEDS: PRENATAL VITAMINS CHEWABLE TABLET PO SCH (09:08)
[2017-04-28] MEDS: FERROUS SULFATE 325MG TAB PO SCH (09:08)
[2017-04-29] VITALS (7 sets, daily range): BP systolic 118–152; BP diastolic 63–94
[2017-04-29] MEDS: PRENATAL VITAMINS CHEWABLE TABLET PO SCH (09:00)
[2017-04-29] MEDS: LABETALOL 200 MG TAB PO SCH ×2 (09:51→20:52)
[2017-04-29] MEDS: FERROUS SULFATE 325MG TAB PO SCH (09:51)
[2017-04-29] MEDS: FAMOTIDINE 20 MG TAB PO SCH ×2 (09:51→20:53)
[2017-04-29] MEDS: PYRIDOXINE 50 MG TAB PO SCH ×2 (09:52→20:51)
--- NOTE | 2017-04-29 15:51 | IPN ---
DATE: 04/29/2017 This lady is a 21-year-old 1 at 33 and 5 weeks of gestation who will be 34 weeks on Thursday with di/di twins. She originally was admitted with pneumonia which has subsequently resolved and she is being maintained here until 34 weeks until delivery management is considered. She has no evidence of preeclamptic changes although she did have some when she came in, but at the present time, she is just awaiting induction of labor or whatever planned management for delivery is. Her complicating factors are that she had di/di twins, elevated one-hour glucose, but her three-hour glucose tolerance test (GTT) indicated that her fasting was 95, one-hour was 149, two hours 155, and three hours 163. She has had recurring nonstress tests which have been normal and she has had ultrasounds on a regular basis. The last imaging that she had was on 04/26/2017 and, at that time, fetus A was estimated weight of 1780 grams, heart rate was 141, amniotic fluid was appropriate with the deepest pocket is 3.4, ST and RI ratios were normal, twin B was 1923 grams, heart rate is 131, ST and RI ratio was normal, amniotic fluid deepest block was 5.1. At the time of the ultrasound, they were vertex, vertex in di/di sac. The latest complete blood count (CBC) which was 04/28/2017 indicated her hemoglobin was 8.7, hematocrit 28.6, and platelets were 195. Her most recent chemistry showed her uric acid was 5.3 and everything else appeared to be normal. Today, her blood pressure is 119/69, respirations are 60, pulse 68, temperature is 98.0. The patient is awaiting discussion on management of the di/di twins at 34 weeks of gestation, otherwise essentially no change since resolving the pneumonia issue.
[2017-04-30 02:00] VITALS: BP 138/86
[2017-04-30 06:00] VITALS: BP 129/72
--- NOTE | 2017-04-30 07:06 | IPNPDOC ---
Text Note Date of Service The patient was seen on 04/30/17. NOTE Antepartum Note HD#22 21yo G1 at 33+6 wks EGA with di/di twin gestation admitted with pneumonia. Denies dyspnea and orthopnea, no cough. Pt denies HAs/vision changes /RUQ pain. Denies LOF/VB/ctxs. +FMx2. No other complaints at this time. No issues with elevated BPs for >12hrs. Completed Growth scan on 04/26/17 - no discordant growth. NST performed yesterday reactive for both for GA. complicated by: 1) Di-Di twin gestation - both vtx/vtx per last US 2) Elevated 1hr GCT; 3hr GTT completed WNL 3) Short cervix at 1.7cm 4) Pre-E with severe features (BP). 5) Pneumonia-resolved O: VS - normal -mild range BPs. AF. Normal RR. Gen: A&Ox3, NAD. Resp: CTAB CV: RRR ABD: Soft/Gravid/NT. NST 27SEP Cat 1X2 Labs: See liveBooks. A/P: 21yo G1 at 33+6wks EGA with complicated by below. 1) Di-Di twin gestation: No new issues. NST daily. Normal growth on 04/26 - vtx/ vtx 2) Pneumonia: treated for 6days with zosyn. No growth. Clinically monitor. AF throughout. 3) Pre-Term/Short cervix. Received steroid dose/completed [id number]. 4) Anemia: ordered PNV, Ferrous sulfate, colace. 5) Pre-E with severe features (BP): on Labetalol 200mg BID. No further anti- hypertensives needed. Will try to maintain until 34wks, tomorrow. 6) Will plan for delivery on 05/01/17 at 34wks - plan for IOL with plan for vaginal delivery VS,Vasylbone, I+O VS, Fishbone, I+O Vital Signs Date Time Temp Pulse Resp B/P (MAP) Pulse Ox O2 Delivery O2 Flow Rate FiO2 04/30/17 06:00 98.4 81 18 129/72 (91) 100 Room Air SESSIONS,ANTOINE León MD Apr 30, 2017 07:06
[2017-04-30] MEDS: FERROUS SULFATE 325MG TAB PO SCH (08:42)
[2017-04-30] MEDS: FAMOTIDINE 20 MG TAB PO SCH ×2 (08:43→20:51)
[2017-04-30] MEDS: LABETALOL 200 MG TAB PO SCH ×2 (08:44→20:53)
[2017-04-30] MEDS: PYRIDOXINE 50 MG TAB PO SCH ×2 (08:45→20:50)
[2017-04-30] MEDS: PRENATAL VITAMINS CHEWABLE TABLET PO SCH (08:45)
[2017-04-30 10:00] VITALS: BP 134/64
[2017-04-30 14:00] VITALS: BP 136/89
[2017-04-30 17:54] VITALS: BP 128/72
[2017-04-30 22:05] VITALS: BP 126/67
[2017-05-01] VITALS (24 sets, daily range): BP systolic 109–167; BP diastolic 58–110
[2017-05-01 08:14] LABS: MEAN CORPUSCULAR HEMOGLOBIN 24.6 pg (27.0-33.0); MEAN CORPUSCULAR HGB CONC 29.6 g/dl (32.0-36.5); MEAN CORPUSCULAR VOLUME 83.1 fl (80.0-96.0); WHITE BLOOD COUNT 7.8 10^3/uL (4.0-10.0)
[2017-05-01 08:15] LABS: RED CELL DISTRIBUTION WIDTH 20.2 % (11.5-14.5)
[2017-05-01] MEDS ORDERED: OXYTOCIN DRIP 30 UNITS in APPROPRIATE DILUENT 1 EA IV SCH ×2 (08:15→20:39)
[2017-05-01] MEDS ORDERED: OXYTOCIN 30 UNITS IN 0.9% NaCl 500ML IV BAG (J2590) As Ordered ONE ×2 (08:16→20:43)
[2017-05-01] MEDS: LR 1,000 ML IV SCH ×2 (08:23→16:13)
[2017-05-01] MEDS ORDERED: MAG Sulf (L&D) 4 GM/100 ML 4 GM in APPROPRIATE DILUENT 1 EA IV ONE (08:30)
[2017-05-01] MEDS ORDERED: PENICILLIN G POTASSIUM IV 5 MU in D5W MINI-BAG PLUS 100 ML IV STA (08:36)
[2017-05-01 08:47] LABS: ALBUMIN 2.5 GM/DL (3.2-5.2); ALBUMIN/GLOBULIN RATIO 0.68 (1.00-1.93); ALKALINE PHOSPHATASE 145 U/L (45-117); ALT/SGPT 19 U/L (12-78); ANION GAP 10 MEQ/L (8-16); AST/SGOT 18 U/L (15-37); BILIRUBIN,TOTAL 0.4 MG/DL (0.2-1.0); BLOOD UREA NITROGEN 9 MG/DL (7-18); CALCIUM LEVEL 8.6 MG/DL (8.5-10.1); CARBON DIOXIDE LEVEL 22 MEQ/L (21-32); CHLORIDE LEVEL 106 MEQ/L (98-107); GLUCOSE, FASTING 73 MG/DL (70-105); POTASSIUM SERUM 4.4 MEQ/L (3.5-5.1); SODIUM LEVEL 138 MEQ/L (136-145); TOTAL PROTEIN 6.2 GM/DL (6.4-8.2); URIC ACID 5.4 MG/DL (2.6-6.0)
[2017-05-01] MEDS: PYRIDOXINE 50 MG TAB PO SCH (09:00)
[2017-05-01] MEDS: PRENATAL VITAMINS CHEWABLE TABLET PO SCH (09:00)
[2017-05-01] MEDS: FERROUS SULFATE 325MG TAB PO SCH (09:00)
[2017-05-01] MEDS: FAMOTIDINE 20 MG TAB PO SCH (09:08)
[2017-05-01] MEDS: LABETALOL 200 MG TAB PO SCH (09:08)
[2017-05-01] MEDS: MAG Sulf (OBGYN) 20GM/500ML 20,000 MG in APPROPRIATE DILUENT 1 EA IV SCH ×2 (09:14→19:00)
[2017-05-01] MEDS ORDERED: PENICILLIN G POTASSIUM 5 MU VIAL As Ordered ONE (09:32)
[2017-05-01] MEDS ORDERED: PROMETHAZINE INJ 25 MG/ML VIAL (J2550) IV ONE (13:00)
[2017-05-01] MEDS ORDERED: BUTORPHANOL 2 MG/ML INJ (J0595) IV ONE (13:00)
[2017-05-01] MEDS ORDERED: PENICILLIN G POTASSIUM IV 2.5 MU in D5W 100 ML IV SCH (14:00)
[2017-05-01 19:14] LABS: MEAN CORPUSCULAR HEMOGLOBIN 24.9 pg (27.0-33.0); MEAN CORPUSCULAR HGB CONC 30.2 g/dl (32.0-36.5); MEAN CORPUSCULAR VOLUME 82.4 fl (80.0-96.0); WHITE BLOOD COUNT 14.6 10^3/uL (4.0-10.0)
[2017-05-01 19:15] LABS: RED CELL DISTRIBUTION WIDTH 20.2 % (11.5-14.5)
[2017-05-01] MEDS ORDERED: ACETAMINOPHEN 500 MG TAB PO PRN (20:45)
[2017-05-01] MEDS ORDERED: MEASLES,MUMPS,RUBELLA VACCINE INJ (MMR-II) (90707) SC SCH (20:45)
[2017-05-01] MEDS ORDERED: PROMETHAZINE 25 MG TAB PO PRN (20:45)
[2017-05-01] MEDS ORDERED: ONDANSETRON 4MG/2ML VIAL (J2405) IV PRN (20:45)
[2017-05-01] MEDS ORDERED: LIDOCAINE 1% MDV INJ 50 ML VIAL INFIL ONE (20:45)
[2017-05-01] MEDS ORDERED: RHOGAM 300 MCG (1500 IU) INJ (J2790) IM SCH (20:45)
[2017-05-01] MEDS ORDERED: DIBUCAINE 1% OINTMENT 30GM TOP PRN (20:45)
[2017-05-01] MEDS: DOCUSATE SODIUM 100 MG CAP PO SCH (21:00)
[2017-05-01] MEDS: IBUPROFEN 800 MG TAB PO PRN (21:22)
[2017-05-02] VITALS (19 sets, daily range): BP systolic 117–138; BP diastolic 66–93
[2017-05-02] MEDS: LR 1,000 ML IV SCH (00:13)
[2017-05-02] MEDS: MAG Sulf (OBGYN) 20GM/500ML 20,000 MG in APPROPRIATE DILUENT 1 EA IV SCH ×2 (05:21→15:15)
[2017-05-02] MEDS: IBUPROFEN 800 MG TAB PO PRN ×2 (06:04→20:39)
[2017-05-02] MEDS: DOCUSATE SODIUM 100 MG CAP PO SCH ×2 (08:58→20:22)
[2017-05-02] MEDS: PRENATAL VITAMINS CHEWABLE TABLET PO SCH (09:00)
[2017-05-03] VITALS (7 sets, daily range): BP systolic 115–156; BP diastolic 65–87
[2017-05-03] MEDS: DOCUSATE SODIUM 100 MG CAP PO SCH ×2 (08:46→19:46)
--- NOTE | 2017-05-03 08:46 | DS.PDOC ---
Discharge Summary General Date of Admission Apr 08, 2017 at 06:06 Date of Discharge [id number] Discharge Summary PROCEDURES PERFORMED DURING STAY: spontaneous vaginal delivery of twins after successful induction at 34 weeks ADMITTING DIAGNOSIS: Pre-E with severe features (BP) Pneumonia DISCHARGE DIAGNOSES: 1. Healthy infants in the NICU HOSPITAL COURSE: Admitted for management of pneumonia on [id number], which eventually resolved. While admitted, she was diagnosed with pre-eclampsia with severe features. With admission, her pre-eclampsia stabilized and she did well until planned delivery at 34 weeks, when she wqas induced and had a successful vaginal delivery of both babies. Uncomplicated, see delivery note. She received Magnesium Sulfate IV for 24 hours after delivery and was discharged in the evening, 24 hours after the Magnesium was stopped. DISCHARGE MEDICATIONS: Motrin, Tylenol, Colace, Dibucaine Physical exam: see note from this morning LABORATORY DATA: Please see below. ACTIVITY: as tolerated. Nothing in vagina for 6 weeks. DIET: regular DISPOSITION:stable TIME SPENT ON DISCHARGE: Greater than 15 minutes. Sessions Vital Signs/I&Os Vital Signs Date Time Temp Pulse Resp B/P (MAP) Pulse Ox O2 Delivery O2 Flow Rate FiO2 05/03/17 06:00 99.6 89 16 117/80 (92) 05/02/17 18:00 100 Room Air 05/02/17 08:00 100 Discharge Medications Scheduled Pyridoxine HCl (Vitamin B 6) 50 Mg Tab, 50 MG PO DAILY, (Reported) Miscellaneous Medications (Unisom) 25 Mg Tab, 25 MG PO, (Reported) Allergies Coded Allergies: No Known Allergies (Unverified , 10/10/16) SESSIONSANTOINE MD May 03, 2017 08:46
--- NOTE | 2017-05-03 08:50 | IPNPDOC ---
Text Note Date of Service The patient was seen on 05/03/17. NOTE PPD2 prog note States feeling well, no complaints. No heavy VB. Pain controlled. Voiding, ambulatory. Bonding well with infants in NICU. VSSAF CTAB RRR Ut at U-2, firm Ext no CCE a/p: Doing well. d/c this afternoon/evening ~24 hours after mag sulfate stopped yesterday as long as BP's are stable. Sessions VS,Enio, I+O VSEnio, I+O Vital Signs Date Time Temp Pulse Resp B/P (MAP) Pulse Ox O2 Delivery O2 Flow Rate FiO2 05/03/17 06:00 99.6 89 16 117/80 (92) 05/02/17 18:00 100 Room Air 05/02/17 08:00 100 SESSIONS,ANTOINE León MD May 03, 2017 08:50
[2017-05-03] MEDS ORDERED: medroxyPROGESTERone ACET IM SUSP 150 MG/ML VIAL (J1050) IM ONE (09:00)
[2017-05-03] MEDS: PRENATAL VITAMINS CHEWABLE TABLET PO SCH (09:00)
[2017-05-03] MEDS: IBUPROFEN 800 MG TAB PO PRN (11:48)
[2017-05-03] MEDS ORDERED: COLA100C5 PO (12:04)
[2017-05-03] MEDS ORDERED: PRENTAB9 PO (12:06)
[2017-05-03] MEDS ORDERED: ACET50TA PO (12:06)
[2017-05-03] MEDS ORDERED: IBUP-1114 PO (12:06)
[2017-05-04] MEDS: IBUPROFEN 800 MG TAB PO PRN (01:23)
[2017-05-04 02:00] VITALS: BP 132/82
[2017-05-04 05:53] VITALS: BP 128/88
--- NOTE | 2017-05-04 06:59 | IPNPDOC ---
Text Note Date of Service The patient was seen on 05/04/17. NOTE PPD3 prog note States feeling well, no complaints. No heavy VB. Pain controlled. Voiding, ambulatory. Bonding well with infants in NICU. VSSAF CTAB RRR Ut at U-2, firm Ext no CCE a/p: Doing well. d/c this am. Sessions VS,Enio, I+O VS, Enio, I+O Vital Signs Date Time Temp Pulse Resp B/P (MAP) Pulse Ox O2 Delivery O2 Flow Rate FiO2 05/04/17 05:53 99.4 104 16 128/88 (101) 05/03/17 22:00 100 Room Air 05/02/17 08:00 100 SESSIONS,ANTOINE León MD May 04, 2017 06:59
[2017-05-04 11:30] VITALS: BP 133/77
[2017-05-04] MEDS: DOCUSATE SODIUM 100 MG CAP PO SCH (11:39)
[2017-05-04] MEDS ORDERED: COLA100C5 PO (11:55)
[2017-05-04] MEDS ORDERED: ACET50TA PO (11:55)
[2017-05-04] MEDS ORDERED: IBUP-1114 PO (11:58)
[2017-05-04] MEDS ORDERED: MULTTAB20 PO (11:58)
== END 2017-05-04 16:30 | disposition home or self-care (01) | DRG 774 ==
LOC: M LDO 09:59 → M OBS 14:13 → OBSVTOIN 04-08 06:06 → M LDO 04-08 16:45 → M OBS 04-08 16:45 → M LDI 05-01 06:35 → M OBS 05-02 00:41
PROVIDERS: ADMIT Obstetrics & Gynecology; ATTEND Student in an Organized Health Care Education/Training Program
PROC: 10E0XZZ Delivery of Products of Conception, External Approach (ICD-10-PCS; principal; 2017-05-01)
PROC: 10907ZC Drainage of Amniotic Fluid, Therapeutic from Products of Conception, Via Natural or Artificial Opening (ICD-10-PCS; 2017-05-01)
PROC: 0HQ9XZZ Repair Perineum Skin, External Approach (ICD-10-PCS; 2017-05-01)
DX: O14.03 Mild to moderate pre-eclampsia, third trimester (principal); J18.9 Pneumonia, unspecified organism; O60.13X0 Preterm labor second trimester with preterm delivery third trimester, not applicable or unspecified; O26.873 Cervical shortening, third trimester; O36.0130 Maternal care for anti-D [Rh] antibodies, third trimester, not applicable or unspecified; O30.043 Twin pregnancy, dichorionic/diamniotic, third trimester; D64.9 Anemia, unspecified; B37.3 Candidiasis of vulva and vagina; Z3A.30 30 weeks gestation of pregnancy; O14.14 Severe pre-eclampsia complicating childbirth; O70.0 First degree perineal laceration during delivery; O99.02 Anemia complicating childbirth; O99.513 Diseases of the respiratory system complicating pregnancy, third trimester; Z37.2 Twins, both liveborn

== ENCOUNTER 2017-05-07 22:14 | Emergency (ER) | payer OTHER ==
[~2017-05-07] VITALS: Ht 162.6 cm; Wt 86.4 kg
[2017-05-07 22:14] VITALS: BP 157/98
[~2017-05-07 22:14] MED LIST changes: +ACET50TA PO; +COLA100C5 PO; +IBUP-1114 PO; +MULTTAB20 PO; +PRENTAB9 PO; +UNIS25TA2 PO; +VITA50TA43 PO
== END 2017-05-07 23:07 | disposition left against medical advice (07) ==
LOC: M ED 22:14
DX: R07.89 Other chest pain (principal); Z53.29 Procedure and treatment not carried out because of patient's decision for other reasons

== ENCOUNTER 2018-06-06 15:23 | Emergency (ER) | payer OTHER ==
[2018-06-06 16:21] LABS: HEMOGLOBIN 11.7 g/dl (12.0-15.5); MEAN CORPUSCULAR HEMOGLOBIN 26.5 pg (27.0-33.0); MEAN CORPUSCULAR HGB CONC 31.6 g/dl (32.0-36.5); MEAN CORPUSCULAR VOLUME 83.9 fl (80.0-96.0); PLATELET COUNT, AUTOMATED 306 10^3/uL (150-450); RED BLOOD COUNT 4.41 10^6/uL (4.00-5.40); RED CELL DISTRIBUTION WIDTH 16.6 % (11.5-14.5); WHITE BLOOD COUNT 6.1 10^3/uL (4.0-10.0)
[2018-06-06 16:45] LABS: CONTROL LINE HCG INT CTR LINE PRESENT; HCG, SERUM QUALITATIVE NEGATIVE (NEGATIVE)
[2018-06-06 16:46] LABS: AMPHETAMINES LEVEL URINE NEGATIVE (NEGATIVE); BARBITURATES URINE NEGATIVE (NEGATIVE); BENZODIAZEPINES URINE NEGATIVE (NEGATIVE); CANNABINOIDS URINE NEGATIVE (NEGATIVE); COCAINE METABOLITE URINE NEGATIVE (NEGATIVE); METHADONE URINE NEGATIVE (NEGATIVE); OPIATES URINE NEGATIVE (NEGATIVE); PHENCYCLIDINE URINE NEGATIVE (NEGATIVE)
[2018-06-06 17:24] LABS: ACETAMINOPHEN LEVEL < 2.0 UG/ML (10.0-30.0); ALBUMIN 3.7 GM/DL (3.2-5.2); ALBUMIN/GLOBULIN RATIO 0.95 (1.00-1.93); ALKALINE PHOSPHATASE 80 U/L (45-117); ALT/SGPT 15 U/L (12-78); ANION GAP 9 MEQ/L (8-16); AST/SGOT 12 U/L (7-37); BILIRUBIN,DIRECT 0.1 MG/DL (0.0-0.2); BILIRUBIN,TOTAL 0.7 MG/DL (0.2-1.0); BLOOD UREA NITROGEN 8 MG/DL (7-18); CALCIUM LEVEL 8.8 MG/DL (8.5-10.1); CARBON DIOXIDE LEVEL 25 MEQ/L (21-32); CHLORIDE LEVEL 105 MEQ/L (98-107); CREATININE FOR GFR 0.72 MG/DL (0.55-1.30); ETHYL ALCOHOL (ETHANOL) < 0.003 % (0.000-0.010); GLOMERULAR FILTRATION RATE > 60.0 (>60); GLUCOSE, FASTING 85 MG/DL (70-100); POTASSIUM SERUM 3.7 MEQ/L (3.5-5.1); SALICYLATE LEVEL < 1.7 MG/DL (5.0-30.0); SODIUM LEVEL 139 MEQ/L (136-145); TOTAL PROTEIN 7.6 GM/DL (6.4-8.2)
== END 2018-06-06 19:36 | disposition short-term general hospital (02) ==
LOC: M ED 15:23
DX: F32.9 Major depressive disorder, single episode, unspecified (principal); R45.851 Suicidal ideations; K21.9 Gastro-esophageal reflux disease without esophagitis; F17.200 Nicotine dependence, unspecified, uncomplicated
CPT/HCPCS: 93005

== ENCOUNTER → 2019-02-03 | Outpatient (CLI) | payer OTHER ==
[~2019-02-03] MED LIST changes: -ACET50TA PO; +CIPR-249 PO; +FLAG500T PO; +MAPA500T2 PO; -PYRI25TA3 PO; +PYRI25TA4 PO; -UNIS25TA2 PO; +UNIS25TA3 PO; +ZOFR4TAB14 PO; -ZOFR4TAB3 PO
[2019-02-03 12:35] LABS: HEMATOCRIT 38.9 % (36.0-47.0); HEMOGLOBIN 12.5 g/dl (12.0-15.5); MEAN CORPUSCULAR HEMOGLOBIN 28.2 pg (27.0-33.0); MEAN CORPUSCULAR HGB CONC 32.1 g/dl (32.0-36.5); MEAN CORPUSCULAR VOLUME 87.8 fl (80.0-96.0); PLATELET COUNT, AUTOMATED 262 10^3/uL (150-450); RED BLOOD COUNT 4.43 10^6/uL (4.00-5.40); WHITE BLOOD COUNT 5.6 10^3/uL (4.0-10.0)
[2019-02-03 12:50] LABS: INR 0.92; PROTHROMBIN TIME 12.1 SECONDS (11.8-14.0)
[2019-02-03 12:51] LABS: PARTIAL THROMBOPLASTIN TIME 28.3 SECONDS (25.0-38.4)
[2019-02-03 13:04] LABS: BLOOD UREA NITROGEN 11 MG/DL (7-18); CALCIUM LEVEL 8.5 MG/DL (8.5-10.1); CARBON DIOXIDE LEVEL 27 MEQ/L (21-32); CHLORIDE LEVEL 106 MEQ/L (98-107); CREATININE FOR GFR 0.72 MG/DL (0.55-1.30); GLOMERULAR FILTRATION RATE > 60.0 (>60); GLUCOSE, FASTING 99 MG/DL (70-100); POTASSIUM SERUM 3.8 MEQ/L (3.5-5.1); SODIUM LEVEL 141 MEQ/L (136-145)
[2019-02-03 13:16] LABS: HCG, SERUM QUALITATIVE NEGATIVE (NEGATIVE)
--- NOTE | 2019-02-03 13:32 | ECGEPIP ---
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
[2019-02-04 11:45] LABS: HIV 1&2 SCREEN CENTAUR NEGATIVE (NEGATIVE)
== END ==
LOC: M LAB 12:06
DX: Z01.818 Encounter for other preprocedural examination (principal)